=== PATIENT | male | born 1965 | race Caucasian/White ===

== ENCOUNTER 2022-04-16 20:32 | Outpatient (CLI) | payer OTHER, SELFPAY ==
--- NOTE | 2022-04-23 09:51 | W.PM.SLEEP ---
Sleep Study Details Details Interpreting Provider: José Samuel MD Date of Sleep Study: 04/16/22 Sleep Study Details: STUDY TYPE:? Hospital split night polysomnogram ? BMI:? 29.7 ORDERING PROVIDER:? Wendy INDICATION:? Concerns about sleep apnea ? SLEEP SUMMARY:? Total sleep time 388.5 minutes, latency 7.5, REM latency 321, efficiency 89.7, arousal index 28.1 RESPIRATORY SUMMARY:? Mean oxygen awake 95 Mean oxygen sleep 88 (pretreatment) minimum 76. 73 minutes oxygen between 80 and 88%, 4 minutes oxygen between 70 and 79% AHI is 88, supine AHI and 81.6, nonsupine AHI 77. No REM stage sleep seen during diagnostic portion of study CPAP titration was attempted and the patient was titrated to a pressure of 12. This teeth decreased AHI to 2.5 and included 4 minutes of nonsupine REM sleep. This would be considered a partially successful titration PERIODIC LIMB MOVEMENTS OF SLEEP:? Pretreatment index 2.2, post treatment index 30.9. None were associated with arousals CARDIAC:? EKG rate awake 81, asleep 70. No arrhythmias noted. IMPRESSION:? Severe obstructive sleep apnea with minimal positional variation. CPAP titration to 12 was effective in the lateral position and included REM stage sleep. RECOMMENDATION: Initiate CPAP auto set at pressure of 11 test 17 with close follow-up.
== END 2022-04-16 20:33 | disposition home or self-care (01) ==
LOC: SLEEP 20:32
PROVIDERS: PCP Family Medicine; Visit Provider Family Medicine
DX: G47.33 Obstructive sleep apnea (adult) (pediatric) (principal)
CPT/HCPCS: 95811

== ENCOUNTER 2024-03-15 09:18 | Outpatient (CLI) | payer OTHER, SELFPAY ==
--- OUTSIDE RECORDS SUMMARY | 2024-03-19 16:48 | XMS_ITS | Clinical Summary ---
Author Organization [employer] [facility] Address [place], [place] [address] Care Team Providers Care Actuarial Mathematician Name Role Phone Pcp, No Primary Care Provider Unavailabl e Allergies No known active allergies Medications No known medications Active Problems No known active problems Social History Tobacco Use Types Packs/Day Years Used Date Smoking Tobacco: Passive Smo ke Exposure - Never Smoker Smokeless Tobacco: Never Comments:girlfriend smokes Alcohol Use Standard Drinks/Week Comments Not Asked 0 (1 standard drink = 0.6 oz pur e alcohol) Sex and Gender Information Value Date Recorded Sex Assigned at Not on file Gender Identity Not on file Sexual Orientation Not on file Obstetrics History Last Filed Vital Signs Vital Sign Reading Time Taken Comments Blood Pressure 132/83 05/17/2013 2:45 PM CDT Pulse 110 05/17/2013 2:45 PM CDT Temperature 36.8 ??C (98.3 ??F) 05/17/2013 2:45 PM CD T Respiratory Rate - - Oxygen Saturation 99% 05/17/2013 2:45 PM CDT Inhaled Oxygen Concentration - - Weight 86.2 kg (190 lb 2 oz) 05/17/2013 2:45 PM CDT Height 172.7 cm (5' 8) 05/17/2013 2:45 PM CDT Body Mass Index 28.91 05/17/2013 2:45 PM CDT Plan of Treatment Health Maintenance Due Date Last Done Comments Tdap 1978 Depression screening for age 12+ 1979 HIV for age 15-65 1982 BMI (ht and wt on same day) for age 18+ 1985 Hepatitis C screening for ag e 18-79 1985 Tetanus booster 1987 Colonoscopy through age 75 2012 Lipids for age 45-75 2012 Zoster (shingles) series for age 50+ (1 of 2) 2017 COVID-19 vaccine series (2022- season) 2023 Influenza for age 50-64 05/30/2024 Pneumococcal series for age 6-64 Aged Out No longer eligible based on patient's age to complete this topic Care Teams Actuarial Mathematician Relationship Specialty Start Date End Date Pcp, No . PCP - General 02/19/21
== END 2024-03-15 09:19 | disposition home or self-care (01) ==
LOC: NFLDREF 03-19 16:46
PROVIDERS: PCP Family Medicine; Referring Provider Family Medicine; Visit Provider Family Medicine
DX: I10 Essential (primary) hypertension (principal); E78.5 Hyperlipidemia, unspecified; Z12.5 Encounter for screening for malignant neoplasm of prostate
CPT/HCPCS: 80053; 80061; G0103

== ENCOUNTER 2025-07-01 09:45 | Outpatient (CLI) | payer OTHER, SELFPAY | END 2025-07-01 09:46 | disposition home or self-care (01) | LOC: NFLDREF 07-04 14:12 | PROVIDERS: PCP Family Medicine; Referring Provider Family Medicine; Visit Provider Family Medicine | DX: I10 Essential (primary) hypertension (principal); E78.5 Hyperlipidemia, unspecified; N40.0 Benign prostatic hyperplasia without lower urinary tract symptoms; Z12.5 Encounter for screening for malignant neoplasm of prostate | CPT/HCPCS: 80053; 80061; G0103 ==